=== PATIENT | male | born 1990 | race Native Hawaiian/Other Pacific Islander ===

== ENCOUNTER 2021-01-07 22:31 | Emergency (ER) | payer SELFPAY ==
[~2021-01-07] VITALS: Ht 152.4 cm; Wt 59.1 kg
[2021-01-07 22:39] VITALS: TEMP 97.2
[2021-01-07] MEDS ORDERED: NAPROXEN 3375 MG/TAB PO (23:19)
[2021-01-07] MEDS ORDERED: FLEXERIL 1010 MG/TAB PO (23:19)
[2021-01-07 23:30] VITALS: BP 114/70; PULSE 68
== END 2021-01-07 23:30 | disposition home or self-care (01) ==
LOC: COL.ER 22:31
DX: S16.1XXA Strain of muscle, fascia and tendon at neck level, initial encounter (principal); S39.012A Strain of muscle, fascia and tendon of lower back, initial encounter; X58.XXXA Exposure to other specified factors, initial encounter; Y93.G3 Activity, cooking and baking; Y99.0 Civilian activity done for income or pay
CPT/HCPCS: J1885